=== PATIENT | female | born 1995 | race Caucasian/White ===

== ENCOUNTER 2020-08-11 16:37 | Observation (INO) ==
[2020-08-11] MEDS ORDERED: 0.9 % Sodium Chloride 1,000 ML IVC ONE ×3 (16:43→18:58)
[2020-08-11 17:13] LABS: Basophils # 0.1 K/mcL (0.0-0.2); Basophils % 0.6 %; Eosinophils # 0.4 K/mcL (0.0-0.6); Eosinophils % 2.7 %; Hematocrit 34.5 % (35.3-44.9); Hemoglobin 11.1 g/dL (11.5-15.4); Immature Granulocytes % 0.5 % (0-4); Lymphocytes # 2.4 K/mcL (0.6-4.6); Lymphocytes % 18.3 %; Mean Corpuscular HGB Conc 32.2 g/dL (31.6-35.5); Mean Corpuscular Hemoglobin 29.7 pg (28.0-33.3); Mean Corpuscular Volume 92.2 fL (83.0-100.0); Mean Platelet Volume 9.1 fL (9.4-12.4); Monocytes # 0.8 K/mcL (0.0-1.3); Monocytes % 6.1 %; Neutrophils # 9.5 K/mcL (1.6-8.9); Platelet Count 306 K/mcL (140-400); Red Blood Count 3.74 M/mcL (3.82-4.97); Red Cell Distribution Width 12.4 % (11.5-14.5); Segmented Neutrophils % 71.8 %; White Blood Count 13.2 K/mcL (4.3-11.1)
[2020-08-11 17:17] LABS: INR 1.1; Prothrombin Time 12.7 Seconds (9.4-12.1)
[2020-08-11 17:33] LABS: Bilirubin,Urine Negative (Negative); Blood,Urine Negative (Negative); Clarity,Urine Clear (Clear); Color,Urine Yellow (Yellow); Glucose,Urine (UA) Normal (Normal); Ketones,Urine Negative (Negative); Leukocyte Esterase,Urine Negative (Negative); Nitrite,Urine Negative (Negative); Protein,Urine Negative (Neg-Trace); Specific Gravity,Urine 1.025 (1.010-1.025); Urobilinogen,Urine Normal (Normal)
[2020-08-11 17:48] LABS: Alanine Aminotransferase 14 Units/L (7-52); Albumin 3.8 g/dL (3.5-5.7); Albumin/Globulin Ratio 1.5 (1.1-2.2); Alkaline Phosphatase 60 Units/L (34-104); Aspartate Amino Transferase 16 Units/L (13-39); BUN/Creatinine Ratio 13 (6-26); Bilirubin,Direct 0.1 mg/dL (0.0-0.2); Bilirubin,Indirect 0.4 mg/dL (0.0-1.0); Bilirubin,Total 0.5 mg/dL (0.3-1.0); Blood Urea Nitrogen 9 mg/dL (6-20); Calcium 8.7 mg/dL (8.6-10.3); Carbon Dioxide 23 mEq/L (23-29); Chloride 103 mEq/L (98-107); Globulin 2.5 g/dL (2.4-3.5); Glucose 148 mg/dL (70-105); Osmolality,Calculated 283 (280-300); Potassium 3.3 mEq/L (3.5-5.1); Sodium 136 mEq/L (136-145); Total Protein 6.3 g/dL (6.4-8.9); eGFR For African Americans > 60 (> 60); eGFR For Non-African Americans > 60 (> 60)
[2020-08-11] MEDS ORDERED: Ondansetron 4 MG/2 ML VIAL ONE (19:57)
[2020-08-11] MEDS ORDERED: *HR* FentaNYL (PF) 100 MCG/2 ML VIAL ONE (19:57)
[2020-08-11] MEDS ORDERED: *HR* Succinylcholine 200 MG/10 ML VIAL IVP ONE (19:57)
[2020-08-11] MEDS ORDERED: Lidocaine -MPF 2% 2 ML VIAL ONE (19:57)
[2020-08-11] MEDS ORDERED: *HR* Midazolam HCl 2 MG/2 ML VIAL ONE (19:57)
[2020-08-11] MEDS ORDERED: *HR* Propofol 200 MG/20 ML VIAL IVP ONE (19:58)
[2020-08-11] MEDS ORDERED: *HR* FentaNYL (PF) 100 MCG/2 ML VIAL IVP PRN (20:18)
[2020-08-11] MEDS ORDERED: Nitroglycerin 0.4 MG TAB.SUBL SL PRN (20:18)
[2020-08-11] MEDS ORDERED: Naloxone 0.4 MG/ML INJ IVP PRN (20:18)
[2020-08-11] MEDS ORDERED: Albuterol 2.5 MG/3 ML NEBULIZER IH PRN (20:18)
[2020-08-11] MEDS ORDERED: Ringers Solution, Lactated 1,000 ML ONE (21:11)
[2020-08-11 21:31] LABS: Hematocrit 24.9 % (35.3-44.9)
[2020-08-11 21:34] LABS: Hemoglobin 7.9 g/dL (11.5-15.4)
[2020-08-11] MEDS ORDERED: Ringers Solution, Lactated 1,000 ML IVC SCH (21:45)
[2020-08-11] MEDS ORDERED: *HR* HYDROcodone/Acet 5/325 mg TABLET PO PRN (21:45)
[2020-08-11] MEDS ORDERED: 0.9 % Sodium Chloride 1,000 ML ONE (22:28)
[2020-08-12 04:56] LABS: Basophils % 0.1 %; Hematocrit 33.4 % (35.3-44.9); Lymphocytes # 1.4 K/mcL (0.6-4.6); Lymphocytes % 9.9 %; Mean Corpuscular HGB Conc 33.2 g/dL (31.6-35.5); Mean Corpuscular Hemoglobin 29.4 pg (28.0-33.3); Mean Corpuscular Volume 88.6 fL (83.0-100.0); Mean Platelet Volume 9.2 fL (9.4-12.4); Monocytes # 0.5 K/mcL (0.0-1.3); Monocytes % 3.7 %; Neutrophils # 11.7 K/mcL (1.6-8.9); Platelet Count 229 K/mcL (140-400); Red Blood Count 3.77 M/mcL (3.82-4.97); Red Cell Distribution Width 13.2 % (11.5-14.5); Segmented Neutrophils % 85.3 %; White Blood Count 13.7 K/mcL (4.3-11.1)
[2020-08-12 04:57] LABS: Hemoglobin 11.1 g/dL (11.5-15.4)
[2020-08-12 07:58] VITALS: BP 96/66
== END 2020-08-12 09:53 | disposition home or self-care (01) ==
LOC: EMEROOARM 16:37 → 1NENUOBS 16:37
PROVIDERS: ADMIT Obstetrics & Gynecology; ATTEND Obstetrics & Gynecology
PROC: [UNRECOGNIZED PROCEDURE] (2020-08-11 20:00)